=== PATIENT | male | born 1945 | race Caucasian/White ===

== ENCOUNTER 2020-12-24 15:46 | Inpatient (IN) | payer OTHER ==
[2020-12-24] MEDS: Sodium Chloride 0.9% 1000 ML 1,000 ML IV SCH ×2 (16:13→22:39)
[2020-12-24 16:24] LABS: Appearance SLIGHTLY CLOUDY (CLEAR); Bacteria FEW /HPF (NEGATIVE); Bilirubin NEGATIVE (NEGATIVE); Blood SMALL Ery/ul (0-5); Epithelial Cells RARE /HPF (FEW); Glucose NEGATIVE (NEGATIVE); Hyaline Casts 0-2 /LPF (0-2); Ketones NEGATIVE (NEGATIVE); Leukocyte Esterase LARGE (NEGATIVE); Mucus SLIGHT /HPF (NEGATIVE); Nitrite NEGATIVE (NEGATIVE); Protein,Urine Dip NEGATIVE (Negative); Specific Gravity 1.015 (1.005-1.025); Urobilinogen NEGATIVE mg/dL (0-1); WBC 51-100 /HPF (0-5)
[2020-12-24 16:27] LABS: Absolute Neutrophil Ct (ANC) 5.46 (1.4-6.9); BASOPHIL % 0.3 % (0.0-0.4); Basophil (Absolute #) 0.02 (0-0.4); Eosinophil (Absolute #) 0.15 (0-0.5); Hematocrit 29.1 % (42-50); Hemoglobin 8.7 gm/dl (12.5-18.0); Lymphocyte (Absolute #) 1.16 (1.0-4.6); Lymphocytes % 15.1 % (24.0-44.0); Mean Cell Volume 85.3 fl (78-100); Mean Corpuscular Hemoglobin 25.5 pg (26-32); Mean Corpuscular Hgb Concent. 29.9 g/dl (32-36); Mean Platelet Volume 9.1 fl (7.5-11.0); Monocytes % 11.7 % (0.0-12.0); Neutrophil % 70.9 % (36.0-66.0); Platelet Count 259 K/mm3 (150-450); Red Blood Count 3.41 M/mm3 (4.1-5.6); White Blood Count 7.7 K/mm3 (4.0-10.5)
[2020-12-24] MEDS ORDERED: LOPRESSOR 5 MG/5 ML INJECTION IV ONE ×2 (16:28→16:30)
[2020-12-24] MEDS ORDERED: ROCEPHIN 1 Gm-D5w 50 ml Bag** 1 G/50 ML IVPB IV STA (16:31)
[2020-12-24] MEDS ORDERED: ROCEPHIN 1 Gm-D5w 50 ml Bag** 1 G/50 ML IVPB IV ONE (16:31)
[2020-12-24 16:37] LABS: ALBUMIN 3.6 g/dL (3.5-5.0); ALKALINE PHOSPHATASE 92 U/L (38-126); AMYLASE 285 U/L (30-110); ANION GAP 15.1 MEQ/L (5-15); BLOOD UREA NITROGEN 25 mg/dL (9-20); CHLORIDE 103 mmol/L (98-107); Calcium 8.4 mg/dL (8.4-10.2); Carbon Dioxide 21 mmol/L (22-30); EST GLOMERULAR FILTRATION RATE > 60.0 ML/MIN; Glucose 103 mg/dL (74-106); LIPASE 124 U/L (23-300); Potassium 3.8 mmol/L (3.5-5.1); SGOT/AST 22 U/L (17-59); SGPT/ALT 18 U/L (0-50); SODIUM 136 mmol/L (137-145); Total Protein 6.5 g/dL (6.3-8.2)
--- NOTE | 2020-12-24 17:02 | XRAY ---
Indication: Urinary pain. Multiple contiguous axial images obtained through the abdomen and pelvis without contrast. Comparison: None Lung bases demonstrates mild scattered fibrosis/scarring, mild posterior left base calcified pleural plaquing, and tiny right effusion with atelectasis. Heart is not enlarged. Mild fluid distended small hiatal hernia. Stomach is mildly fluid distended. Noncontrasted stomach and bowel loops are not obstructed. Mild diffuse scattered colonic fecal debris throughout including rectum. No free fluid/air. Urinary bladder is empty with Lau balloon catheter in situ. Tiny hepatic/splenic calcified granulomas. Remaining liver, gallbladder, pancreas, spleen, adrenal glands, kidneys, and ureters are unremarkable for noncontrast exam. 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 Lack of IV contrast precludes further characterization. Osseous structures intact with osteopenia, minimal/mild multilevel degenerative spondylosis, bilateral L5 spondylolysis without spondylolisthesis, old right inferior pubic ramus fracture, and old right lower rib fractures. Impression: 1. Diffuse fecal stasis. 2. Indeterminate tiny right lung base pleural effusion. 3. Scattered arteriosclerotic disease with distal AAA, left common iliac artery aneurysm, and aortobiiliac stent graft. 4. Incidental left lung base calcified pleural plaquing, fluid distended hiatal hernia, Lau catheter in situ, and chronic bony findings.
[2020-12-24] MEDS ORDERED: Ativan 2 MG/1 ML VIAL IV ONE (17:59)
[2020-12-24] MEDS ORDERED: Sodium Chloride 0.9% 1000 ML 1,000 ML IV STA (18:06)
[2020-12-24] MEDS ORDERED: Ativan 2 MG/1 ML VIAL ONE (18:07)
--- NOTE | 2020-12-24 18:11 | ERPHSYRPT ---
- History of Present Illness Time Seen by Provider: 12/24/20 16:05 Source: family Exam Limitations: other (Records at this point not available from [facility]) Patient Subjective Stated Complaint: urinary retention Triage Nursing Assessment: Patient brought back to ED via w/c and transferred to bed with assist of 1. Patient Alert to self only. Patient poor historian. Patient's at bedside and states patient is incontinent and has complained all day that he is not able to urinate today and has had pain in the pelvic region. F/C placed at this time with immediate relief. Patient's reports increased confusion for the past couple of days. Physician History: Patient is a 75-year-old white male who presents with urinary retention according to his he normally goes to the [facility] he also is demented and has suffered an acute decline in his cognitive functions. The reports that he has been unable to urinate for 2 days except for a little bit of dribbling. A Lau was placed almost immediately upon arrival and did return about 300 cc of urine. Timing/Duration: day(s) (2) Severity: severe Associated Symptoms: abdominal pain, weakness Allergies/Adverse Reactions: No Known Drug Allergies Allergy (Unverified 12/24/20 15:54) Hx Influenza Vaccination/Date Given: No Hx Pneumococcal Vaccination/Date Given: No Immunizations Up to Date: Yes Travel Risk - International Travel Have you traveled outside of the country in past 3 weeks: No - Coronavirus Screening Are you exhibiting any of the following symptoms?: No Close contact with a COVID-19 positive Pt in past 14-21 Days: No - Vaccine Status Have you recieved a Covid-19 vaccination: Yes [place]: Moderna - Vaccination Dates Date of 2cond Vaccination (if applicable): April 2020 Comment: Booster December - Review of Systems All Other Systems: Unable due to condition - Past Medical History Pertinent Past Medical History: Yes Neurological History: Other Cardiac History: Arrhythmia, Myocardial Infarction (PA) Respiratory History: No Pertinent History Endocrine Medical History: No Pertinent History Musculoskeletal History: No Pertinent History GI Medical History: No Pertinent History History: No Pertinent History Psycho-Social History: No Pertinent History Male Reproductive Disorders: No Pertinent History Other Medical History: PA in 2001 went into Cardiac arrest 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 fx pelvis May 2020. 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 - Past Surgical History Past Surgical History: Yes Neuro Surgical History: No Pertinent History Cardiac: CABG, Internal Defibrillator, Pacemaker Respiratory: No Pertinent History Gastrointestinal: No Pertinent History Genitourinary: No Pertinent History Musculoskeletal: Amputation Male Surgical History: No Pertinent History - Social History Smoking Status: Former smoker Exposure to second hand smoke: No Drug Use: none Patient Lives Alone: No - Nursing Vital Signs Nursing Vital Signs: Initial Vital Signs Temperature 97.2 F 12/24/20 15:55 Pulse Rate 119 H 12/24/20 15:55 Respiratory Rate 20 12/24/20 15:55 Blood Pressure 106/85 12/24/20 15:55 O2 Sat by Pulse Oximetry 99 12/24/20 15:55 Pain Scale Pain Intensity 0 - Physical Exam General Appearance: moderate distress Eye Exam: PERRL/EOMI, eyes nml inspection Ears, Nose, Throat Exam: normal ENT inspection, TMs normal, pharynx normal, moist mucous membranes Neck Exam: normal inspection, non-tender, supple, full range of motion Respiratory Exam: crackles/rales, rhonchi Cardiovascular Exam: tachycardia, irregular Gastrointestinal/Abdomen Exam: soft, normal bowel sounds, No tenderness Male Genitalia Exam: normal genitalia Extremity Exam: other (Right lower extremity [id number]-vuf-swin amputation) Neurologic Exam: disoriented, confusion, agitation, uncooperative, abnormal gait Skin Exam: normal color, warm, dry SpO2 Interpretation: normal SpO2: 97 O2 Delivery: Room Air - Course Nursing assessment & vital signs reviewed: Yes EKG Interpreted by Me: RATE (111), A-fib, NORMAL INTERVALS, NORMAL QRS, Non- specific ST Changes - CT Exams Abdomen/Pelvis CT Interpretation: Tele-radiologist Report Ordered Tests: Active Orders 24 hr Category Date Time Status Cylinder Inspector And Tester STAT Care 12/24/20 16:21 Active Catheter-[place] Lau STAT Care 12/24/20 16:01 Active EKG-ER Only STAT Care 12/24/20 16:14 Active IV Insertion STAT Care 12/24/20 16:01 Active ABDOMEN AND PELVIS W/0 CONTRAS [CT] Stat Exams 12/24/20 16:42 Completed AMYLASE Stat Lab 12/24/20 16:04 Completed BLOOD CULTURE Stat Lab 12/24/20 16:15 Received CBC W DIFF Stat Lab 12/24/20 16:04 Completed CMP Stat Lab 12/24/20 16:04 Completed CULTURE,URINE Stat Lab 12/24/20 16:01 Ordered LIPASE Stat Lab 12/24/20 16:04 Completed Lactic Acid Stat Lab 12/24/20 16:16 Completed TROPONIN Q3H Lab 12/24/20 16:04 Completed TROPONIN Q3H Lab 12/24/20 19:15 Ordered TROPONIN Q3H Lab 12/24/20 22:15 Ordered TROPONIN Q3H Lab 12/25/20 01:15 Ordered TROPONIN Q3H Lab 12/25/20 04:15 Ordered UA W/RFX UR CULTURE Stat Lab 12/24/20 16:12 Completed Medication Summary Generic Name Dose Route Start Last Admin Trade Name Freq PRN Reason Stop Dose Admin Sodium Chloride 1,000 mls @ 100 mls/hr 12/24/20 16:15 12/24/20 17:28 Sodium Chloride 0.9% 1000 Ml IV 01/23/21 16:14 Infused .Q10H MEJIA Infusion Lorazepam 2 mg 12/24/20 17:59 Lorazepam 2 Mg/1 Ml 2 Mg Vial IV 12/24/20 18:00 STAT ONE Discontinued Medications Generic Name Dose Route Start Last Admin Trade Name Freq PRN Reason Stop Dose Admin Ceftriaxone Sodium/Dextrose 1 g in 50 mls @ 100 mls/hr 12/24/20 16:31 12/24/20 17:03 Rocephin 1 Gm-D5w 50 Ml Bag IV 12/24/20 17:00 Infused STAT STA Infusion Ceftriaxone Sodium/Dextrose Confirm 12/24/20 16:31 Rocephin 1 Gm-D5w 50 Ml Bag Administered 12/24/20 16:32 Dose 1 g in 50 mls @ ud IV .STK-MED ONE Metoprolol Tartrate 2.5 mg 12/24/20 16:28 12/24/20 16:33 Metoprolol Tartrate 5 Mg/5 Ml Injection IV 12/24/20 16:29 2.5 mg STAT ONE Administration Metoprolol Tartrate Confirm 12/24/20 16:30 Metoprolol Tartrate 5 Mg/5 Ml Injection Administered 12/24/20 16:31 Dose 5 mg IV .STK-MED ONE Lab/Rad Data: Laboratory Result Diagrams 12/24/20 16:04 12/24/20 16:04 Laboratory Results 12/24/20 12/24/20 12/24/20 Range/Units 16:16 16:12 16:04 WBC (4.0-10.5) K/mm3 RBC (4.1-5.6) M/mm3 Hgb (12.5-18.0) gm/dl Hct (42-50) % MCV (78-100) fl MCH (26-32) pg MCHC (32-36) g/dl RDW (11.5-14.0) % Plt Count (150-450) K/mm3 MPV (7.5-11.0) fl Gran % (36.0-66.0) % Eos # (Auto) (0-0.5) Absolute Lymphs (auto) (1.0-4.6) Absolute Monos (auto) (0.0-1.3) Lymphocytes % (24.0-44.0) % Monocytes % (0.0-12.0) % Eosinophils % (0.00-5.0) % Basophils % (0.0-0.4) % Absolute Granulocytes (1.4-6.9) Basophils # (0-0.4) Sodium (137-145) mmol/L Potassium (3.5-5.1) mmol/L Chloride (98-107) mmol/L Carbon Dioxide (22-30) mmol/L Anion Gap (5-15) MEQ/L BUN (9-20) mg/dL Creatinine (0.66-1.25) mg/dL Estimated GFR ML/MIN Glucose (74-106) mg/dL Lactic Acid 5.0 H (0.4-2.0) Calcium (8.4-10.2) mg/dL Total Bilirubin (0.2-1.3) mg/dL AST (17-59) U/L ALT (0-50) U/L Alkaline Phosphatase (38-126) U/L Troponin I < 0.012 (0.000-0.034) ng/mL Serum Total Protein (6.3-8.2) g/dL Albumin (3.5-5.0) g/dL Amylase (30-110) U/L Lipase (23-300) U/L Urine Color YELLOW (YELLOW) Urine Appearance SLIGHTLY CLOUDY (CLEAR) Urine pH 5.0 (5-6) Ur Specific [place] 1.015 (1.005-1.025) Urine Protein NEGATIVE (Negative) Urine Ketones NEGATIVE (NEGATIVE) Urine Blood SMALL (0-5) Gen/ul Urine Nitrite NEGATIVE (NEGATIVE) Urine Bilirubin NEGATIVE (NEGATIVE) Urine Urobilinogen NEGATIVE (0-1) mg/dL Ur Leukocyte Esterase LARGE (NEGATIVE) Urine WBC (Auto) 51-100 (0-5) /HPF Urine RBC (Auto) 6-10 (0-2) /HPF U Hyaline Cast (Auto) 0-2 (0-2) /LPF U Epithel Cells (Auto) RARE (FEW) /HPF Urine Bacteria (Auto) FEW (NEGATIVE) /HPF Urine Mucus (Auto) SLIGHT (NEGATIVE) /HPF Urine Culture Reflexed ORDERED SEPARATELY (NO) Urine Glucose NEGATIVE (NEGATIVE) mg/dL 12/24/20 12/24/20 Range/Units 16:04 16:04 WBC 7.7 (4.0-10.5) K/mm3 RBC 3.41 L (4.1-5.6) M/mm3 Hgb 8.7 L (12.5-18.0) gm/dl Hct 29.1 L (42-50) % MCV 85.3 (78-100) fl MCH 25.5 L (26-32) pg MCHC 29.9 L (32-36) g/dl RDW 18.0 H (11.5-14.0) % Plt Count 259 (150-450) K/mm3 MPV 9.1 (7.5-11.0) fl Gran % 70.9 H (36.0-66.0) % Eos # (Auto) 0.15 (0-0.5) Absolute Lymphs (auto) 1.16 (1.0-4.6) Absolute Monos (auto) 0.90 (0.0-1.3) Lymphocytes % 15.1 L (24.0-44.0) % Monocytes % 11.7 (0.0-12.0) % Eosinophils % 2.0 (0.00-5.0) % Basophils % 0.3 (0.0-0.4) % Absolute Granulocytes 5.46 (1.4-6.9) Basophils # 0.02 (0-0.4) Sodium 136 L (137-145) mmol/L Potassium 3.8 (3.5-5.1) mmol/L Chloride 103 (98-107) mmol/L Carbon Dioxide 21 L (22-30) mmol/L Anion Gap 15.1 H (5-15) MEQ/L BUN 25 H (9-20) mg/dL Creatinine 1.10 (0.66-1.25) mg/dL Estimated GFR > 60.0 ML/MIN Glucose 103 (74-106) mg/dL Lactic Acid (0.4-2.0) Calcium 8.4 (8.4-10.2) mg/dL Total Bilirubin 0.40 (0.2-1.3) mg/dL AST 22 (17-59) U/L ALT 18 (0-50) U/L Alkaline Phosphatase 92 (38-126) U/L Troponin I (0.000-0.034) ng/mL Serum Total Protein 6.5 (6.3-8.2) g/dL Albumin 3.6 (3.5-5.0) g/dL Amylase 285 H (30-110) U/L Lipase 124 (23-300) U/L Urine Color (YELLOW) Urine Appearance (CLEAR) Urine pH (5-6) Ur Specific [place] (1.005-1.025) Urine Protein (Negative) Urine Ketones (NEGATIVE) Urine Blood (0-5) Gen/ul Urine Nitrite (NEGATIVE) Urine Bilirubin (NEGATIVE) Urine Urobilinogen (0-1) mg/dL Ur Leukocyte Esterase (NEGATIVE) Urine WBC (Auto) (0-5) /HPF Urine RBC (Auto) (0-2) /HPF U Hyaline Cast (Auto) (0-2) /LPF U Epithel Cells (Auto) (FEW) /HPF Urine Bacteria (Auto) (NEGATIVE) /HPF Urine Mucus (Auto) (NEGATIVE) /HPF Urine Culture Reflexed (NO) Urine Glucose (NEGATIVE) mg/dL - Progress Progress: improved Progress Note: 12/24/20 18:12 We discussed admission at the [facility] [place] and we were told that if he needed admission he should be admitted here. Discussed with : Dana - Departure Departure Disposition: In-patient Admission Clinical Impression: Urinary tract infection, Severe dementia, Atrial fibrillation, Dehydration, Anemia Condition: Fair Critical Care Time: No Referrals: [facility],'S [Primary Care Provider] - Follow up/PCP as directed
[2020-12-24] MEDS ORDERED: Miralax Powder 17GM PACKET PO SCH (22:00)
[2020-12-24] MEDS ORDERED: XARELTO 10 MG TABLET PO SCH (22:00)
[2020-12-24] MEDS ORDERED: ZOCOR 20MG PO SCH (22:00)
[2020-12-24] MEDS ORDERED: ECOTRIN 81 MG PO SCH (22:00)
[2020-12-24] MEDS ORDERED: Flomax 0.4 MG PO SCH (22:00)
[2020-12-25 05:43] LABS: ALBUMIN 2.5 g/dL (3.5-5.0); ALKALINE PHOSPHATASE 59 U/L (38-126); ANION GAP 10.2 MEQ/L (5-15); BLOOD UREA NITROGEN 42 mg/dL (9-20); CHLORIDE 111 mmol/L (98-107); Calcium 7.3 mg/dL (8.4-10.2); Carbon Dioxide 20 mmol/L (22-30); Creatinine 1 0.93 mg/dL (0.66-1.25); EST GLOMERULAR FILTRATION RATE > 60.0 ML/MIN; Glucose 103 mg/dL (74-106); Potassium 4.4 mmol/L (3.5-5.1); SGOT/AST 15 U/L (17-59); SGPT/ALT 12 U/L (0-50); SODIUM 136 mmol/L (137-145); Total Protein 4.8 g/dL (6.3-8.2)
[2020-12-25 06:00] LABS: Absolute Neutrophil Ct (ANC) 4.78 (1.4-6.9); BASOPHIL % 0.2 % (0.0-0.4); Basophil (Absolute #) 0.01 (0-0.4); Eosinophil % 0.8 % (0.00-5.0); Eosinophil (Absolute #) 0.05 (0-0.5); Hematocrit 20.3 % (42-50); Lymphocyte (Absolute #) 1.11 (1.0-4.6); Lymphocytes % 16.8 % (24.0-44.0); Mean Cell Volume 85.3 fl (78-100); Mean Corpuscular Hemoglobin 25.2 pg (26-32); Mean Corpuscular Hgb Concent. 29.6 g/dl (32-36); Mean Platelet Volume 9.9 fl (7.5-11.0); Monocyte (Absolute #) 0.67 (0.0-1.3); Monocytes % 10.1 % (0.0-12.0); Neutrophil % 72.1 % (36.0-66.0); Platelet Count 226 K/mm3 (150-450); Red Blood Count 2.38 M/mm3 (4.1-5.6); Red Cell Distribution Width 17.8 % (11.5-14.0); White Blood Count 6.6 K/mm3 (4.0-10.5)
[2020-12-25] MEDS ORDERED: Sodium Chloride 0.9% 1000 ML 1,000 ML ONE (07:23)
[2020-12-25] MEDS ORDERED: MEDICATION INTERVENTION PO SCH (07:45)
[2020-12-25 09:12] LABS: ABO TYPING A; RH TYPING POSITIVE
[2020-12-25] MEDS ORDERED: ROCEPHIN 1 Gm-D5w 50 ml Bag** 1 G/50 ML IVPB IV SCH (10:00)
[2020-12-25] MEDS ORDERED: Risperdal 1 MG PO SCH (10:00)
[2020-12-25] MEDS: Sodium Chloride 0.9% 1000 ML 1,000 ML IV SCH ×2 (11:58→15:38)
[2020-12-25] MEDS ORDERED: FEOSOL 325 MG PO SCH (12:00)
[2020-12-25 12:40] LABS: Ferritin 15.9 ng/mL (17.9-464); Folate (Folic Acid) 5.81 ng/mL (2.76 - >20)
[2020-12-25 18:56] LABS: AB ID Interp Anti-E
[2020-12-25 20:13] LABS: Antibody Screen POSITIVE (NEGATIVE)
[2020-12-25] MEDS ORDERED: MELATONIN 3 MG PO SCH (22:00)
== END 2020-12-25 15:45 | DRG 690 ==
LOC: ED 15:46 → MED SURG 20:11
PROVIDERS: ADMIT Family Medicine; ATTEND Family Medicine
DX: N39.0 Urinary tract infection, site not specified (principal); R33.9 Retention of urine, unspecified; R10.9 Unspecified abdominal pain; R53.1 Weakness; E86.0 Dehydration; D64.9 Anemia, unspecified; I48.91 Unspecified atrial fibrillation; R41.82 Altered mental status, unspecified; Z20.822 Contact with and (suspected) exposure to COVID-19
CPT/HCPCS: 36000; 36415; 51702; 74176; 80053; 81001; 82150; 82274; 82607; 82728; 82746; 83540; 83605; 83690; 84145; 84484; 85025; 85045; 86850; 86870; 86900; 86901; 87040; 87077; 87086; 87186; 93005; 93041; 96374; 96375; 99285; J0696; J2060; U0003; A9270-GY; G0328